=== PATIENT | male | born 1950 | race Caucasian/White ===

== ENCOUNTER 2019-12-04 18:57 | Emergency (ER) | payer OTHER, MEDICARE, SELFPAY ==
--- NOTE | ~2019-12-04 | XR_ITS ---
XR finger 1st LT min 2V DATE: 12/04/2019 19:30 INDICATION: Saw injury/laceration at tip of first digit TECHNIQUE: 3 views COMPARISON: None FINDINGS: There is a prominent laceration of the anterior aspect of the distal first digit. No radiop aque soft tissue foreign body is detected. There is no fracture or dislocation, periosteal reaction o r bone destruction. Mild osteoarthritis at the interphalangeal joint of the first digit and at the first carpometacarpal joint. There is osteoarthritic joint space narrowing and spurring at the triscaphe joint. IMPRESSION: Prominent soft tissue laceration of anterior distal first digit; no radiopaque foreign young dy or fracture or dislocation Polyarticular osteoarthritis Reviewed, dictated and finalized at location A. IMPRESSION: Prominent soft tissue laceration of anterior distal first digit; no radiopaque foreign body or fracture or dislocation Polyarticular osteoarthritis
[2019-12-04 19:06] VITALS: BP 143/80; PULSE 367; RESP 18; TEMP 37.3; O2SAT 96
--- NOTE | 2019-12-04 19:41 | ED.WOUNDLAC ---
HPI - Wound/Laceration General Chief Complaint: Wound/Laceration <JEREMY Chavez Last Filed: 12/04/19 21:21> Stated Complaint: thumb lac <JEERMY Chavez Last Filed: 12/04/19 21:21> Time Seen by Provider: 12/04/19 19:14 <JEREMY Chavez Last Filed: 12/04/19 21:21> Source: patient <JEREMY Chavez Last Filed: 12/04/19 21:21> Mode of arrival: ambulatory <JEREMY Chavez Last Filed: 12/04/19 21:21> Limitations: no limitations <JEREMY Chavez Last Filed: 12/04/19 21:21> History of Present Illness HPI narrative: This is a 69-year-old male that presents the emergency department for laceration to left thumb sustained his prior to arrival. Reports a table saw injury. Does not think he is up-to-date on tetanus. Denies decreased range of motion or numbness. <JEREMY Chavez Last Filed: 12/04/19 21:21> Related Data Home Medications: Home Medications Medication Instructions Recorded Confirmed alprazolam 12/04/19 aspirin 12/04/19 carvedilol 12/04/19 clopidogrel 12/04/19 furosemide 12/04/19 mirtazapine 30 mg PO HS 12/04/19 potassium chloride [Klor-Con M20] meq PO 12/04/19 ramipril [Altace] 10 mg PO BID 12/04/19 rosuvastatin mg 12/04/19 <JEREMY Chavez Last Filed: 12/04/19 21:21> Allergies/Adverse Reactions: Allergies Allergy/AdvReac Type Severity Reaction Status Date / Time etodolac AdvReac Severe Other Verified 12/04/19 19:43 <JEREMY Chavez Last Filed: 12/04/19 21:21> Review of Systems Review of Systems: Narrative: CONSTITUTIONAL: Denies fever SKIN: Reports laceration MUSCULOSKELETAL: Denies joint pain, or myalgia. NEUROLOGIC: Denies numbness <Lina Varela PA-C - Last Filed: 12/04/19 21:21> All systems reviewed & are unremarkable except as noted in HPI and below <Lina Varela PA-C - Last Filed: 12/04/19 21:21> [facility] Past Medical History Medical History: Medical History (Updated 12/05/19 @ 00:00 by Background Daemon) History of coronary artery disease History of pacemaker <Lina Varela PA-C - Last Filed: 12/04/19 21:21> Surgical History Surgical History: Surgical History (Updated 12/04/19 @ 19:44 by Lina Varela PA-C) History of cardiac catheterization History of coronary artery bypass graft <Lina Varela PA-C - Last Filed: 12/04/19 21:21> Social History Social History: Social History Gender identity (if verbalized by the patient): Male <Lina Varela PA-C - Last Filed: 12/04/19 21:21> Exam Narrative: Exam Narrative: GENERAL: Well-appearing, well-nourished, and in no acute distress. HEAD: Normocephalic, atraumatic. EYES: EOMI. EXTREMITIES: Normal range of motion. No edema. Left thumb palmar surface distal phalanx with 2 cm linear laceration into subcutaneous tissue SKIN: Warm, dry, no rash. NEURO: No focal deficits. Alert and oriented x3. PSYCH: Normal mood and affect <Lina Varela PA-C - Last Filed: 12/04/19 21:21> Course Vital Signs Vital signs: Vital Signs Temperature 99.1 F 12/04/19 19:06 Pulse Rate 367 H 12/04/19 19:06 Respiratory Rate 18 12/04/19 19:06 Blood Pressure 143/80 H 12/04/19 19:06 Pulse Oximetry 96 12/04/19 19:06 Temperature 98.9 F 12/04/19 21:38 Pulse Rate 72 12/04/19 21:38 Respiratory Rate 16 12/04/19 21:38 Blood Pressure 137/79 12/04/19 21:38 Pulse Oximetry 98 12/04/19 21:38 <Lina Varela PA-C - Last Filed: 12/04/19 21:21> Vital Signs Temperature 99.1 F 12/04/19 19:06 Pulse Rate 367 H 12/04/19 19:06 Respiratory Rate 18 12/04/19 19:06 Blood Pressure 143/80 H 12/04/19 19:06 Pulse Oximetry 96 12/04/19 19:06 Temperature 98.9 F 12/04/19 21:38 Pulse Rate 72 12/04/19 21:38 Respiratory Rate 16 12/04/19 21:38 Blood Pressure 137/79 12/04/19 21:38 Pulse Oximetry 98 12/04/19 21:38 <Cortney Amezcua
[2019-12-04 19:42] VITALS: PULSE 67
[2019-12-04] MEDS: TETANUS,DIPHTHERIA,AC PERTUSSIS ADULT (0.5 ML) BOOSTRIX IM (19:59)
--- NOTE | 2019-12-04 21:00 | PC.NURSE ---
ED PA in room for wound care.
[2019-12-04 21:38] VITALS: BP 137/79; PULSE 72; RESP 16; TEMP 37.2; O2SAT 98
== END 2019-12-04 21:46 | disposition home or self-care (01) ==
PROVIDERS: Emergency Provider General Practice; PCP Internal Medicine
DX: S61.012A Laceration without foreign body of left thumb without damage to nail, initial encounter (principal); I25.10 Atherosclerotic heart disease of native coronary artery without angina pectoris; Z95.0 Presence of cardiac pacemaker; Z95.1 Presence of aortocoronary bypass graft; W31.2XXA Contact with powered woodworking and forming machines, initial encounter; Z23 Encounter for immunization; M19.042 Primary osteoarthritis, left hand
CPT/HCPCS: 12001; 73140; 90471; 90715; 99283

== ENCOUNTER 2024-05-22 08:26 | Emergency (ER) | payer OTHER, MEDICARE, SELFPAY ==
[2024-05-22] VITALS (13 sets, daily range): BP systolic 136–167; BP diastolic 68–78; PULSE 52–59; RESP 15–24; TEMP 36.5–36.6; O2SAT 95–100
--- NOTE | ~2024-05-22 | XR_ITS ---
XR chest 2V 05/22/2024 09:00 Indication: Chest pain. History of ME. Procedure: 2 view chest Comparison: 08/03/2013 Findings: Heart size normal. Stable position to electrodes overlying the heart. Heart size normal. St atus post median sternotomy for CABG. No focal air space disease, pulmonary edema, pleural effusion o r suspected pneumothorax. No acute osseous abnormality. There are calcified granulomas of the spleen. Impression: 1: No acute cardiopulmonary disease. Reviewed, dictated and finalized at location B. 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
--- NOTE | 2024-05-22 08:28 | ECG_ITS ---
Test Date: 2024-05-22 08:36:13 Measurements Intervals [place] Rate: 54 P: 43 MN: 181 QRS: -34 QRSD: 105 T: 97 QT: 413 QTc: 394 Interpretive Statements SINUS BRADYCARDIA LEFT AXIS DEVIATION [QRS AXIS < -30] POSSIBLE ANTERIOR MYOCARDIAL INFARCTION , OF INDETERMINATE AGE [30 ms Q WAVE IN V3/V4, OR R < 0.2 mV IN V4] MODERATE T-WAVE ABNORMALITY, CONSIDER LATERAL ISCHEMIA [-0.1+ mV T-WAVE IN I/aVL/V5/V6] No previous ECG available for comparison Electronically Signed On 05-22-2024 12:21:51 REGISTERED ROUTE ASSOCIATE by Thu Lao M.D.
[2024-05-22 08:48] LABS: Basophils Absolute Auto 0.1 K/mm3 (0.0-0.1); Basophils Percent Auto 0.8 % (0.2-1.2); Eosinophils Absolute Auto 0.3 K/mm3 (0-0.3); Eosinophils Percent Auto 4.1 % (0-4.4); Hematocrit 42.4 % (42.0-52.0); Hemoglobin 13.9 g/dL (14.0-18.0); Immature Granulocyte Absolute 0.01 K/mm3 (0.00-0.031); Immature Granulocyte Percent A 0.2 % (0-0.5); Lymphocytes Absolute Auto 1.22 K/mm3 (0.9-3.2); Lymphocytes Percent Auto 19.5 % (18.3-44.2); Mean Corpuscular HGB Conc 32.8 g/dl (32-36); Mean Corpuscular Volume 97.7 fl (80-100); Mean Platelet Volume 10.8 fl (7.4-10.4); Monocytes Absolute Auto 0.6 K/mm3 (0.1-0.6); Monocytes Percent Auto 8.8 % (2.6-8.5); Neutrophils Absolute Auto 4.2 K/mm3 (1.3-6.7); Neutrophils Percent Auto 66.6 % (45.5-73.1); Platelet Count Result 182 k/mm3 (150-375); Red Blood Count 4.34 M/mm3 (4.6-6.20); Red Cell Distribution Width 12.7 % (11.5-14.5); White Blood Count 6.3 K/mm3 (4.5-10.0)
[2024-05-22 08:52] LABS: Alanine Aminotransferase 21 U/L (6-50); Albumin Level 4.5 g/dL (3.5-5.1); Alkaline Phosphatase 53 U/L (38-126); Anion Gap 6 mmol/L (4-12); Aspartate Amino Transferase 32 U/L (17-59); Bilirubin,Total 0.8 mg/dL (0.2-1.3); Blood Urea Nitrogen 19 mg/dL (9-20); Calcium 9.2 mg/dL (8.4-10.2); Carbon Dioxide 29 mmol/L (22-30); Chloride 106 mmol/L (98-107); Estimated Glomerular Filt Rate > 60; Glucose 126 mg/dL (65-110); Lipase 89 U/L (23-300); Potassium 4.6 mmol/L (3.4-5.0); Sodium 141 mmol/L (137-145)
[2024-05-22 08:53] LABS: INR 0.9
[2024-05-22 08:54] LABS: Partial Thromboplastin Time 24.2 Seconds (22.3-36.8)
[2024-05-22 09:03] LABS: Troponin I < 0.012 ng/mL (0.000-0.034)
--- NOTE | 2024-05-22 09:39 | ED_ITS ---
HPI - Chest Pain General Chief Complaint: Chest Pain Stated Complaint: chest burning Time Seen by Provider: 05/22/24 08:30 History of Present Illness HPI narrative: Patient is a 74-year-old male who presents ER with left-sided chest pain. Reports couple days ago he was on a ladder when he slipped off the wrong falling down and having to grab himself with the latter. Since then he has been having aching to left side of his chest that increased this morning. No exertional chest discomfort. No shortness of breath. Did not suffer any head trauma. Has history of heart disease. Reports he has had chronic discomfort in the area of his chest since having a pacemaker move all years ago. 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 Related Data Home Medications ?Medication ?Instructions ?Recorded ?Confirmed ?Last Taken ?Type alprazolam 0.25 mg tablet 12/04/19 Unknown History aspirin 81 mg tablet,delayed 12/04/19 Unknown History release carvedilol 25 mg tablet 12/04/19 Unknown History clopidogrel 75 mg tablet 12/04/19 Unknown History furosemide 20 mg tablet 12/04/19 Unknown History mirtazapine 30 mg tablet 30 mg PO HS 12/04/19 Unknown History potassium chloride 20 mEq meq PO 12/04/19 Unknown History tablet,extended release(part/cryst) (Klor-Con M) ramipril 10 mg capsule (Altace) 10 mg PO BID 12/04/19 Unknown History rosuvastatin 40 mg tablet mg 12/04/19 Unknown History Allergies Allergy/AdvReac Type Severity Reaction Status Date / Time etodolac AdvReac Severe Other Verified 12/04/19 19:43 Review of Systems 2 Review of Systems: All systems reviewed & are unremarkable except as noted in HPI and below Constitutional: Constitutional: Reports no additional constitutional complaints Cardiovascular: Cardiovascular: Reports no additional cardiovascular complaints Respiratory: Respiratory: Reports no additional respiratory complaints Gastrointestinal: Gastrointestinal: Reports no additional gastrointestinal complaints [facility] Past Medical History Medical History (Updated 05/22/24 @ 12:51 by Mani Boyd MD) History of pacemaker History of coronary artery disease Surgical History Surgical History (Updated 12/04/19 @ 19:44 by Lina Varela PA-C) History of cardiac catheterization History of coronary artery bypass graft Social History Social History Gender identity (if verbalized by the patient): Male Exam 2 Narrative: GENERAL: Well-appearing, well-nourished, and in no acute distress. HEAD: Normocephalic, atraumatic. ENT: Mucous membranes moist. CHEST: Clear to auscultation. No respiratory distress. Deformity of left pectoralis from previous surgery. HEART: Regular rate and rhythm. Normal peripheral pulses. ABDOMEN: Soft, nontender, nondistended. EXTREMITIES: Normal range of motion. No edema. SKIN: Warm, dry, no rash. NEURO: Alert and oriented x3. PSYCH: Normal mood and affect. Course Course Emergency Course: patient resting comfortably. No chest pain. Troponin negative x2. Suspect pain is related to fall from ladder. Has been having intermittent symptoms like this for years as well. Vital Signs Vital signs: Vital Signs Temperature 97.8 F 05/22/24 08:32 Pulse Rate 56 L 05/22/24 08:32 Respiratory Rate 16 05/22/24 08:32 Blood Pressure 167/75 H 05/22/24 08:32 Pulse Oximetry 98 05/22/24 08:32 Oxygen Delivery Room Air 05/22/24 08:32 Temperature 97.9 F 05/22/24 11:00 Pulse Rate 57 L 05/22/24 12:31 Respiratory Rate 22 H 05/22/24 12:31 Blood Pressure 143/70 H 05/22/24 12:30 Pulse Oximetry 98 05/22/24 12:31 Oxygen Delivery Room Air 05/22/24 08:32 MDM - Chest Pain Lab Data 05/22/24 08:35 05/22/24 08:35 Labs: Lab Results 05/22/24 05/22/24 Range/Units 08:35 11:42 WBC 6.3 (4.5-10.0) K/mm3 RBC 4.34 L (4.6-6.20) M/mm3 Hgb 13.9 L (14.0-18.0) g/dL Hct 42.4 (42.0-52.0) % MCV 97.7 (80-100) fl MCH 32.0 (26-34) pg MCHC 32.8 (32-36) g/dl RDW 12.7 (11.5-14.5) % Plt Count 182 (150-375) k/mm3 MPV 10.8 H (7.4-10.4) fl Immature Gran % (Auto) 0.2 (0-0.5) % Neut % (Auto) 66.6 (45.5-73.1) % Lymph % (Auto) 19.5 (18.3-44.2) % Trigg % (Auto) 8.8 H (2.6-8.5) % Eos % (Auto) 4.1 (0-4.4) % Baso % (Auto) 0.8 (0.2-1.2) % Lymph # (Auto) 1.22 (0.9-3.2) K/mm3 Trigg # (Auto) 0.6 (0.1-0.6) K/mm3 Eos # (Auto) 0.3 (0-0.3) K/mm3 Baso # (Auto) 0.1 (0.0-0.1) K/mm3 Abs Immat Gran (auto) 0.01 (0.00-0.031) K/mm3 Absolute Neuts (auto) 4.2 (1.3-6.7) K/mm3 Absolute Nucleated RBC 0.000 (0.0-0.012) K/mm3 Nucleated RBC % 0.0 (0.0-0.2) % PT 13.0 (11.1-14.7) Seconds INR 0.9 APTT 24.2 (22.3-36.8) Seconds Sodium 141 (137-145) mmol/L Potassium 4.6 (3.4-5.0) mmol/L Chloride 106 (98-107) mmol/L Carbon Dioxide 29 (22-30) mmol/L Anion Gap 6 (4-12) mmol/L BUN 19 (9-20) mg/dL Creatinine 1.00 (0.7-1.3) mg/dL Estim Creat Clear Calc Not Reportable Estimated GFR > 60 (59 - ) Glucose 126 H (65-110) mg/dL Calcium 9.2 (8.4-10.2) mg/dL Total Bilirubin 0.8 (0.2-1.3) mg/dL AST 32 (17-59) U/L ALT 21 (6-50) U/L Alkaline Phosphatase 53 (38-126) U/L Troponin I < 0.012 < 0.012 (0.000-0.034) ng/mL Total Protein 8.0 (6.3-8.2) g/dL Albumin 4.5 (3.5-5.1) g/dL Lipase 89 (23-300) U/L Imaging Data Radiologist's impression: ITS Impressions Chest X-Ray 05/22/24 09:02 Impression: 1: No acute cardiopulmonary disease. ECG Data EKG #1: ECG completion date: 05/22/24 ECG completion time: 12:12 EKG Interpretation: bradycardia (58), sinus rhythm, no ectopy, normal QRS, normal QT and left axis Discharge Plan Discharge Clinical Impression: Atypical chest pain Patient Disposition: Home, Self-Care Condition: Stable Instructions: Chest Wall Pain (ED) Additional Instructions: Please return to the emergency department if you develop severe and persistent chest pain, difficulty breathing, dizziness, leg swelling or if you are coughing up blood as these can be signs of a medical emergency. Please call your doctor for a follow up appointment to determine the need for further testing. Patient Language: [place] Island[place] Prescriptions: No Action carvedilol 25 mg tablet clopidogrel 75 mg tablet aspirin 81 mg Tablet,Delayed Release (Dr/Ec) alprazolam 0.25 mg tablet potassium chloride [Klor-Con M20] 20 mEq tablet,ER particles/crystals PO mirtazapine 30 mg Tablet 30 mg PO HS furosemide 20 mg tablet ramipril [Altace] 10 mg Capsule 10 mg PO BID rosuvastatin 40 mg tablet cephalexin 500 mg capsule 500 mg PO Q8H 5 Days Qty: 15 0RF Follow-up/Referrals: Philippe,MD Clay [Primary Care Provider] - 1 Week Quality HEART score for chest pain patients History: slightly suspicious ECG: normal Age: > or = to 65 years Risk factors: > or = to 3 risk factors of atherosclerotic disease Troponin: < or = to 1x normal limit Heart score: 4
--- NOTE | 2024-05-22 12:09 | ECG_ITS ---
Test Date: 2024-05-22 12:12:41 Measurements Intervals [place] Rate: 58 P: 25 [place]: 155 QRS: -34 QRSD: 100 T: 100 QT: 389 QTc: 385 Interpretive Statements SINUS BRADYCARDIA MARKED LEFT AXIS DEVIATION [QRS AXIS < -30] POSSIBLE ANTERIOR MYOCARDIAL INFARCTION , OF INDETERMINATE AGE [30 ms Q WAVE IN V3/V4, OR R < 0.2 mV IN V4] MODERATE T-WAVE ABNORMALITY, CONSIDER LATERAL ISCHEMIA Compared to ECG 05/22/2024 08:36:13 NO SIGNIFICANT CHANGES Electronically Signed On 05-22-2024 12:25:11 [employer]AL [employer]AMMER by Thu Lao M.D.
[2024-05-22 12:23] LABS: Troponin I < 0.012 ng/mL (0.000-0.034)
== END 2024-05-22 13:01 | disposition home or self-care (01) ==
PROVIDERS: Emergency Provider Emergency Medicine; PCP Internal Medicine
DX: R07.89 Other chest pain (principal); I25.10 Atherosclerotic heart disease of native coronary artery without angina pectoris; Z95.1 Presence of aortocoronary bypass graft; R00.1 Bradycardia, unspecified; R94.31 Abnormal electrocardiogram [ECG] [EKG]; W11.XXXA Fall on and from ladder, initial encounter
CPT/HCPCS: 36415; 71046; 80053; 83690; 84484; 85025; 85610; 85730; 93005; 99284